=== PATIENT | male | born 1985 | race Caucasian/White ===

== ENCOUNTER 2022-02-11 13:58 | Emergency (ER) | payer OTHER | END 2022-02-11 14:58 | disposition left against medical advice (07) | LOC: ER 13:58 | DX: Z53.21 Procedure and treatment not carried out due to patient leaving prior to being seen by health care provider (principal) ==

== ENCOUNTER 2022-02-11 15:48 | Emergency (ER) | payer MEDICAID, OTHER ==
[~2022-02-11] VITALS: Ht 175.3 cm; Wt 100.0 kg
[2022-02-11 16:07] VITALS: BP 131/81
[2022-02-11 22:06] LABS: BASOPHILS % 0.4 % (0.0-2.0); EOSINOPHILS % 0.8 % (0.0-5.0); HEMATOCRIT. 46.5 % (42.0-52.0); HEMOGLOBIN. 16.3 g/dL (14.0-18.0); LYMPHOCYTES % 35.7 % (20.0-50.0); MEAN CORPUSCULAR HEMOGLOBIN 35.5 pg (28.0-32.0); MEAN CORPUSCULAR VOLUME 101.1 fL (80.0-94.0); MEAN PLATELET VOLUME 7.1 fl (7.4-10.4); MONOCYTES % 6.3 % (2.0-8.0); NEUTROPHILS % 56.8 % (40.0-76.0); PLATELET 251 x1000/uL (130-400); RED CELL DISTRIBUTION WIDTH 12.9 % (11.6-14.6)
[2022-02-11 22:11] LABS: CHLORIDE 105 mEq/L (98-107)
[2022-02-11 22:12] LABS: PROTHROMBIN TIME 10.3 sec (9.6-11.0)
== END 2022-02-11 23:40 | disposition home or self-care (01) ==
LOC: ER 15:48
DX: K62.5 Hemorrhage of anus and rectum (principal); R10.12 Left upper quadrant pain; Z86.16 Personal history of COVID-19
CPT/HCPCS: 36415; 74176; 80053; 85025; 99284